=== PATIENT | male | born 1990 | race Caucasian/White ===

== ENCOUNTER 2024-09-15 11:48 | Emergency (ER) | payer MEDICAID ==
[2024-09-15 12:48] VITALS: PULSE 105; RESP 20; O2SAT 92
[2024-09-15] MEDS: ipratropium/albuterol 3ml nebule NEB ONE (12:48)
[2024-09-15 12:54] VITALS: PULSE 123; RESP 20; O2SAT 100
[2024-09-15 13:18] VITALS: BP 138/70; PULSE 100; RESP 16; TEMP 98.6; O2SAT 99
== END 2024-09-15 13:22 | disposition home or self-care (01) ==
LOC: ER 11:49
DX: J98.01 Acute bronchospasm (principal); R05.9 Cough, unspecified; F17.210 Nicotine dependence, cigarettes, uncomplicated; Z91.048 Other nonmedicinal substance allergy status
CPT/HCPCS: 94640; 94760; 99283

== ENCOUNTER 2024-11-24 21:45 | Emergency (ER) | payer MEDICAID ==
[~2024-11-24] VITALS: Ht 170.2 cm; Wt 77.7 kg
[2024-11-24 21:47] VITALS: BP 138/78; PULSE 91; RESP 17; O2SAT 99
--- NOTE | 2024-11-24 22:34 | Physician Documentation ---
History of Present Illness ~ Chief Complaint: Rash Stated Complaint: INFECTION BOILS ON ARM Time Seen by MD: 22:11 HPI Patient is seen today with complaints of rash on his arms and his penis on his foreskin and the glans penis. Patient denies any fevers or chills or dysuria or penile discharge. Patient denies any chest pain or shortness of breath or abdominal pain or nausea, vomiting, diarrhea. Patient has no other concern or complaint at this time. Medication Reconciliation Allergies: Coded Allergies: pollen extracts (Verified Allergy, Unknown, 11/24/24) Past Medical History Past Medical History: No Pertinent History Review of Systems Constitutional: Denies: chills, fever, weakness Eyes: Denies: pain, blurred vision ENT: Denies: ear pain, nose pain, throat pain, mouth pain Respiratory: Denies: cough, shortness of breath Cardiovascular: Denies: chest pain, palpitations Gastrointestinal: Denies: abdominal pain, nausea, vomiting Genitourinary: Denies: burning, dysuria Male Genitalia: Denies: penile discharge, testicular pain Neurological: Denies: headache, dizziness Musculoskeletal: Denies: pain, swelling Integumentary: Denies: rash, lesions Allergic/Immunologic: Denies: hives, itching Hematologic/Lymphatic: Denies: no symptoms reported Psychiatric: Denies: depression, anxiety Physical Exam Vital Signs: Temperature: 97.9, Source: Oral, Heart Rate: 91, Respiratory Rate: 17, BP: 138/78, Pulse Oximetry: 99, Weight: 77.730 Physical Exam General: Awake and Alert, no acute distress. HEENT: Conjunctiva pink, Sclera clear, Mucus Membranes moist. Neck: Supple without masses and tenderness. Resp: Unlabored. Lungs clear to auscultation bilaterally. Heart: Regular Rate and rhythm, normal S1 and S2 without murmur, rub or gallop. Abdomen: Soft and non tender no organomegaly Extremities: No cyanosis,clubbing or edema. Skin: On exam, patient does have very small papule on forearm scattered throughout the forearm. Without any erythema or sign of secondary infection, otherwise I do not appreciate any significant rash of the arms or the penis or foreskin. Patient does have very small skin lesion consistent with folliculitis. Patient has no rash on the penis or glands penis and foreskin. Progress Results/Orders Results/Orders Vital Signs 11/24/24 21:47 Temp 97.9 Pulse 91 Resp 17 B/P (MAP) 138/78 Pulse Ox 99 Medical Decision Making Findings Patient is seen today with complaints of rash on his arms and his penis on his foreskin and the glans penis. Patient denies any fevers or chills or dysuria or penile discharge. Patient denies any chest pain or shortness of breath or abdominal pain or nausea, vomiting, diarrhea. Patient has no other concern or complaint at this time. Patient was given reassurance that there is no significant disease process at this time and no significant rash or Infectious Disease or sign of infectious disease or sign of any significant rash at this time. Patient will follow up with primary care for referral to Dermatology should he have any further questions. Return to ED with any worsening, concerning or changing symptoms. Departure Disposition: HOME / SELF CARE / HOMELESS Impression: Primary Impression: Skin lesion Condition: Improved Additional Instructions: Patient was given reassurance that there is no significant disease process at this time and no significant rash or Infectious Disease or sign of infectious di sease or sign of any significant rash at this time. Patient will follow up with primary care for referral to Dermatology should he have any further questions. Return to ED with any worsening, concerning or changing symptoms. Referrals: NO PRIMARY CARE PROVIDER (PCP) Signature Scribe Signature: No scribe Attestation: No scribe DANAE GUARDADO PAC Nov 24, 2024 22:34
[2024-11-24 22:46] VITALS: TEMP 97.9
== END 2024-11-24 22:47 | disposition home or self-care (01) ==
LOC: ER 21:46
DX: L98.9 Disorder of the skin and subcutaneous tissue, unspecified (principal); Z91.048 Other nonmedicinal substance allergy status
CPT/HCPCS: 99281; 99282

== ENCOUNTER 2024-12-22 04:38 | Emergency (ER) | payer MEDICAID ==
[~2024-12-22] VITALS: Ht 185.4 cm; Wt 64.0 kg
[2024-12-22 04:40] VITALS: TEMP 96.8
[2024-12-22 05:42] VITALS: BP 104/67; PULSE 67; O2SAT 99
[2024-12-22] MEDS ORDERED: HYDR-3973 PO (06:03)
[2024-12-22] MEDS ORDERED: PENI500T2 PO (06:03)
--- NOTE | 2024-12-22 06:06 | Physician Documentation ---
HPI ~ General Chief Complaint: Tooth Problem Stated Complaint: DENTAL PAIN Time Seen by MD: 06:01 Source: patient Mode of Arrival: POV Exam Limitations: no limitations History of Present Illness HPI Comment Chief Complaint: Dental pain Caveat: Independent Historians: History of Present Illness: Patient is a 34-year-old man who comes in complaining of right lower dental pain and facial pain. Patient had a couple of molars removed in the right lower mandible on December 20. He woke up this morning with a severe pain. No fever but he states that he felt like at a fever. No bleeding. No drainage from where the teeth were pulled. No other associated symptoms. Pain is severe and constant. Review of systems: All systems were reviewed and are negative except for what is indicated in the history of present illness. Past Medical History: None Past Surgical History: None Social History: Tobacco use, denies alcohol or drug use Medications: Reviewed as documented Nursing Notes Allergies: Reviewed as documented in Nursing Notes Medication Reconciliation Allergies: Coded Allergies: pollen extracts (Verified Allergy, Unknown, 12/22/24) Scheduled Penicillin V Potassium* (Penicillin VK*), 500 MG PO Q6H Scheduled PRN Hydrocodone Bit/Acetaminophen (Hydrocodone-Apap 10-325 Tablet), 1 TAB PO TID PRN PRN for pain Past Medical History Past Medical History: No Pertinent History Review of Systems All Other Systems at this time: Reviewed and Negative ROS Patient denies any other acute symptoms other than above. All other systems are negative Physical Exam Vital Signs: RN Vital Signs have been reviewed: Yes, Temperature: 96.8, Source: Temporal, Heart Rate: 67, Respiratory Rate: 16, BP: 104/67, Pulse Oximetry: 99, Weight: 64.000 Pulse Oximetry Reflects: adequate oxygenation Physical Exam General Appearance: Mild distress HEENT: Normal OP, moist oral mucosa, PERRL, EOMI, very poor dentition, right lower molars have been extracted. No active bleeding. No drainage. Very mild right facial swelling, no erythema or induration Neck: supple, normal ROM, trachea midline Pulmonary: No respiratory distress, CTA, BS equal Cardiac: RRR, no murmur, rub or gallop, Skin: intact, dry, warm, no rashes Neuro: AAOx3, speech is clear, no focal motor weakness Psych: normal affect, good eye contact, no apparent hallucination, normal speech Progress Results/Orders Results/Orders Completed Orders - FEDERICO CASTILLO MD Penicillin V Potassium Tablet (Penicilli (12/22/24 06:15) Hydrocodone/Apap 10/325 ([place] 10/325mg (12/22/24 06:15) Amox Tr/Potassium Clavulanate (Augmentin (12/22/24 06:25) Vital Signs 12/22/24 12/22/24 12/22/24 04:40 05:42 06:38 Temp 96.8 Pulse 98 67 Resp 15 16 16 B/P (MAP) 115/65 104/67 (79) Pulse Ox 99 99 Medical Decision Making Findings Differential diagnosis includes but is not limited to: Postsurgical pain, dental pain, dental infection, abscess Emergency department course/medical decision-making: Patient is postop two days from dental extraction. Patient woke up earlier with severe pain. Patient will be started on pen VK for possible early infection and given a prescription for [place]. Patient is stable for discharge. Patient is instructed to follow up with his dentist. Departure Time of Disposition: 06:01 Disposition: HOME / SELF CARE / HOMELESS Impression: Primary Impression: Pain, dental Condition: Stable Discharge Instructions: Dental Pain Additional Instructions: FOLLOW UP WITH YOUR DENTIST NEEDED. TAKE MOTRIN FOR PAIN 800 MG EVERY 8 HOURS. Prescriptions Penicillin V Potassium* (Penicillin VK*) 500 Mg Tablet 500 MG PO Q6H, #40 TAB Prov: FEDERICO CASTILLO MD 12/22/24 Hydrocodone Bit/Acetaminophen (Hydrocodone-Apap 10-325 Tablet) 10mg/325mg Tablet 1 TAB PO TID PRN PRN for pain for 5 Days, #15 TAB Prov: FEDERICO CASTILLO MD 12/22/24 Education Educated: Patient Educated regarding: diagnosis, treatment Signature Scribe Signature: NO SCRIBE Attestation: NO SCRIBE FEDERICO CASTILLO MD Dec 22, 2024 06:06
[2024-12-22] MEDS: penicillin V potassium 500mg tablet PO ONE (06:24)
[2024-12-22 06:38] VITALS: RESP 16
[2024-12-22] MEDS: HYDROcodone/acetaminophen 10/325mg tab PO ONE (06:38)
[2024-12-22] MEDS: amox tr/potassium clavulanate 875/125mg TAB PO ONE (06:38)
== END 2024-12-22 06:44 | disposition home or self-care (01) ==
LOC: ER 04:38
DX: K08.89 Other specified disorders of teeth and supporting structures (principal); Z79.899 Other long term (current) drug therapy
CPT/HCPCS: 99283